=== PATIENT | male | born 1960 | race Caucasian/White ===

== ENCOUNTER → 2016-12-05 | Outpatient (CLI) | payer MEDICARE, MEDICAID ==
[2015-11-15 10:30] VITALS: BP 137/82
[~2016-12-05] MED LIST: HYDR-2762 PO; MULT-460 PO; NAPR220T70 PO; OXYC-323 PO; OXYC15TA PO; OXYC5CAP3 PO; TAMS0.4C97 PO
--- NOTE | 2016-12-05 14:23 | RAD ---
Thyroid ultrasound, 12/05/2016: History: Low TSH The right lobe of the gland measures 5.2 x 1.7 x 1.7 cm while the left lobe of the gland measures 5.4 x 1.6 x 1.4 cm. No thyroid mass is identified. The thyroid vascularity is unremarkable. IMPRESSION: No significant abnormality is detected.
== END | disposition home or self-care (01) ==
LOC: US 16:08
PROVIDERS: ATTEND Family Medicine
DX: E83.52 Hypercalcemia (principal); R94.6 Abnormal results of thyroid function studies
CPT/HCPCS: 76536

== ENCOUNTER 2017-01-04 15:58 | Emergency (ER) | payer MEDICARE, MEDICAID ==
[~2017-01-04] VITALS: Ht 182.9 cm; Wt 75.0 kg
[2017-01-04] MEDS ORDERED: IV NORMAL SALINE 1000ML BAG 1,000 ML IV SCH (17:04)
[2017-01-04 17:13] LABS: BASO # 0.1 x10^3/uL (0.0-0.2); BASO % 1 % (0-3); EOS % 2 % (0-3); HEMATOCRIT 42.7 % (39.0-53.0); HEMOGLOBIN 14.2 g/dL (13.0-17.5); LYMPH # 2.1 x10^3/uL (1.0-4.8); LYMPH % 34 % (24-48); MEAN CORPUSCULAR HEMOGLOBIN 32 pg (25-35); MEAN CORPUSCULAR HGB CONC 33 g/dL (31-37); MEAN CORPUSCULAR VOLUME 96 fL (79-100); MONO % 9 % (0-9); NEUT % 54 % (31-73); PLATELET COUNT 228 x10^3/uL (140-400); RED BLOOD COUNT 4.47 x10^6/uL (4.30-5.70); RED CELL DISTRIBUTION WIDTH 12.7 % (11.5-14.5); WHITE BLOOD COUNT 6.2 x10^3/uL (4.0-11.0)
[2017-01-04] MEDS ORDERED: HYDROMORPHONE 2 MG/ML VIAL. IV/SQ PRN (17:15)
[2017-01-04] MEDS ORDERED: KETOROLAC TROMETHAMINE 30 MG/ML SYRINGE. IV ONE (17:15)
[2017-01-04] MEDS ORDERED: ONDANSETRON PF 4 MG/2 ML VIAL. IV ONE (17:15)
[2017-01-04 17:25] LABS: CALCIUM 9.8 mg/dL (8.5-10.1); GFR 77.6; POTASSIUM 3.9 mmol/L (3.5-5.1)
[2017-01-04 17:26] LABS: BILIRUBIN,URINE NEGATIVE (NEG); GLUCOSE,URINE NEGATIVE (NEG); NITRITE,URINE NEGATIVE (NEG); PH,URINE 5.5; PROTEIN,URINE 100 mg/dL (NEG-TRACE); UROBILINOGEN,URINE 0.2 mg/dL (0.2 mg/dL)
[2017-01-04 17:31] LABS: ALBUMIN 3.6 g/dL (3.4-5.0); ALBUMIN/GLOBULIN RATIO 1.1 (1.0-1.7); TOTAL BILIRUBIN 0.3 mg/dL (0.2-1.0); TOTAL PROTEIN 6.8 g/dL (6.4-8.2)
--- NOTE | 2017-01-04 17:36 | RAD ---
PROCEDURE CT abdomen and pelvis without intravenous contrast. HISTORY Left flank pain for [address] of the abdomen and pelvis was performed without intravenous or oral contrast. Exposure: One or more of the following individualized dose reduction techniques were utilized for this examination: 1. Automated exposure control. 2. Adjustment of the mA and/or kV according to patient size. 3. Use of iterative reconstruction technique. COMPARISON CT abdomen pelvis. FINDINGS Evaluation of solid organs is limited by lack of intravenous contrast. Evaluation of enteric structures may be limited by lack of oral contrast. Liver demonstrates sub centimeter low-density lesion, not adequately characterized on this exam. Spleen, pancreas, gallbladder, and bilateral adrenal glands unremarkable. Aortic atherosclerosis is seen. No bowel obstruction or inflammation is identified. Appendix is without evidence of inflammation. No free air or free fluid is seen in the abdomen or pelvis. Prostate appears enlarged. The urinary bladder has a somewhat atypical appearance. There may have been reimplantation of the ureters, as the ureters appear to insert on the lateral side of the urinary bladder as opposed to the posterior aspect as is expected. There has been interval resolution of previously identified right urinary stone. Current examination is without evidence of right nephrolithiasis or ureterolithiasis. No right urinary obstruction is seen. The left renal pelvis demonstrates 1.4 centimeter stone which does not appear to be creating obstruction at this time; there is evidence of inflammation surrounding the left renal pelvis. The inferior pole of left kidney demonstrates 2 nonobstructive nephroliths measuring 7 and 2 millimeters. IMPRESSION 1. Large left renal pelvis stone. Two nonobstructive nephroliths involving the inferior pole of left kidney. 2. There is evidence of inflammatory change surrounding the left renal pelvis, may be secondary to intermittent obstruction versus infection. Electronically signed by: Mendez Rene MD (Jan 04, 2017 17:35:34)
[2017-01-04 18:04] LABS: BACTERIA,URINE MODERATE /HPF (0-FEW); RBC,URINE >40 /HPF (0-2)
[2017-01-04 18:05] LABS: SQUAMOUS EPITHELIAL CELL,UR OCC /LPF
[2017-01-04] MEDS ORDERED: CYCL10TA2 PO (18:59)
[2017-01-04] MEDS ORDERED: TRAM-29 PO (18:59)
[2017-01-04] MEDS ORDERED: CIPR500T94 PO (18:59)
--- NOTE | 2017-01-04 19:00 | PHYS DOC ---
Past Medical History Past Medical History: Kidney Stone, Other Additional Past Medical Histor: BACK PAIN, LEFT LEG PAIN, hepatitis C Past Surgical History: Other Additional Past Surgical Histo: back surgery, knee surgery, left elbow surgery Alcohol Use: None Drug Use: None Adult General Chief Complaint Chief Complaint: FLANK PAIN HPI HPI Patient is a 56 year old gentleman who presents here today complaining of left flank pain. Patient reports he has a history of a kidney stone in the past however this feels different. Patient has any fevers shaking chills nausea vomiting diarrhea dysuria frequency urgency hematuria chest pain shortness of breath or abdominal pain. Patient reports the pain increases when he twists his back. Patient has a history of renal colic in the past. Patient has any hypertension diabetes liver or lung problems. Patient has a history of hepatitis C. Patient has no surgeries in the past. Patient is allergic to any medicines. Patient does not smoke drink or do drugs. Patient's physical exam was remarkable for tenderness to palpation to his left flank and reducible pain with rotation of his torso. Patient is otherwise stable. Patient's workup in the ER was significant for a positive UA with 11-[address] scan did not reveal any evidence of hydronephrosis however there was some inflammation around the kidney that may be secondary to infection. Given the abnormal UA and symptoms patient was having will go ahead and treat him with Cipro. She'll also be treated with Flexeril and ibuprofen to assist him with pain that is likely secondary to a chemical strain to his back. Much improved while in the ER. Patient was given normal saline and Dilaudid initially secondary to the the presentation that was consistent with possible kidney stone. Patient is currently pain-free Patient was instructed to follow-up with his primary care physician within the next 2-3 days for reevaluation of his pain. Review of Systems Review of Systems Constitutional: Denies fever or chills [] Eyes: Denies change in visual acuity, redness, or eye pain [] Kelly other review systems are negative except as documented in the history of present illness portion. Current Medications Current Medications Current Medications Medications (Trade) Dose Ordered Sig/Matilda Start Time Stop Time Status Last Admin Dose Admin Ciprofloxacin (Cipro) 500 mg 1X ONCE 01/04/17 19:15 01/04/17 19:16 DC 01/04/17 19:20 500 MG Hydromorphone HCl 1 mg 1 mg PRN Q15MIN PRN 01/04/17 17:15 01/04/17 19:27 DC Ketorolac Tromethamine (Toradol) 15 mg 1X ONCE 01/04/17 17:15 01/04/17 17:16 DC 01/04/17 17:25 15 MG Ondansetron HCl (Zofran) 4 mg 1X ONCE 01/04/17 17:15 01/04/17 17:16 DC 01/04/17 17:25 4 MG Sodium Chloride (Iv Sodium Chloride 0.9% 1000ml Bag) 1,000 ml @ 1,000 mls/hr Q1H 01/04/17 17:04 01/04/17 18:03 DC 01/04/17 17:25 1,000 MLS/HR Tramadol HCl (Ultram) 50 mg 1X ONCE 01/04/17 19:15 01/04/17 19:16 DC 01/04/17 19:17 50 MG Allergies Allergies Allergies Coded Allergies Type Severity Reaction Last Updated Verified acetaminophen Adverse Reaction Intermediate Nausea and Vomiting 11/15/15 Yes Physical Exam Physical Exam Constitutional: Well developed, well nourished, no acute distress, non-toxic appearance. [] HENT: Normocephalic, atraumatic, bilateral external ears normal, oropharynx moist, no oral exudates, nose normal. [] Eyes: PERRLA, EOMI, conjunctiva normal, no discharge. [] Neck: Normal range of motion, no tenderness, supple, no stridor. [] Cardiovascular:Heart rate regular rhythm, no murmur [] Lungs & Thorax: Bilateral breath sounds clear to auscultation [] Abdomen: Bowel sounds normal, soft, no tenderness, no masses, no pulsatile masses. [] Skin: Warm, dry, no erythema, no rash. [] Extremities: No tenderness, no cyanosis, no clubbing, ROM intact, no edema. [] Neurologic: Alert and oriented X 3, normal motor function, normal sensory function, no focal deficits noted. [] Psychologic: Affect normal, judgement normal, mood normal. [] Current Patient Data Vital Signs Vital Signs Date Time Temp Pulse Resp B/P Pulse Ox O2 Delivery O2 Flow Rate FiO2 01/04/17 19:24 74 20 125/73 98 Room Air 01/04/17 16:50 97.9 97.9 Lab Values Laboratory Tests Test 01/04/17 16:35 01/04/17 17:03 Urine Color Johanne Urine Clarity Cloudy Urine pH 5.5 Urine Specific Latham >=1.030 Urine Protein 100mg/dL (NEG-TRACE) Urine Glucose (UA) Negativemg/dL (NEG) Urine Ketones (Stick) Tracemg/dL (NEG) Urine Blood Large (NEG) Urine Nitrite Negative (NEG) Urine Bilirubin Negative (NEG) Urine Urobilinogen Dipstick 0.2mg/dL (0.2 mg/dL) Urine Leukocyte Esterase Moderate (NEG) Urine RBC >40/HPF (0-2) Urine WBC 11-20/HPF (0-4) Urine Squamous Epithelial Cells Occ/LPF Urine Bacteria Moderate/HPF (0-FEW) White Blood Count 6.2x10^3/uL (4.0-11.0) Red Blood Count 4.47x10^6/uL (4.30-5.70) Hemoglobin 14.2g/dL (13.0-17.5) Hematocrit 42.7% (39.0-53.0) Mean Corpuscular Volume 96fL (79-100) Mean Corpuscular Hemoglobin 32pg (25-35) Mean Corpuscular Hemoglobin Concent 33g/dL (31-37) Red Cell Distribution Width 12.7% (11.5-14.5) Platelet Count 228x10^3/uL (140-400) Neutrophils (%) (Auto) 54% (31-73) Lymphocytes (%) (Auto) 34% (24-48) Monocytes (%) (Auto) 9% (0-9) Eosinophils (%) (Auto) 2% (0-3) Basophils (%) (Auto) 1% (0-3) Neutrophils # (Auto) 3.3x10^3uL (1.8-7.7) Lymphocytes # (Auto) 2.1x10^3/uL (1.0-4.8) Monocytes # (Auto) 0.6x10^3/uL (0.0-1.1) Eosinophils # (Auto) 0.1x10^3/uL (0.0-0.7) Basophils # (Auto) 0.1x10^3/uL (0.0-0.2) Sodium Level 138mmol/L (136-145) Potassium Level 3.9mmol/L (3.5-5.1) Chloride Level 103mmol/L (98-107) Carbon Dioxide Level 27mmol/L (21-32) Anion Gap 8 (6-14) Blood Urea Nitrogen 18mg/dL (8-26) Creatinine 1.0mg/dL (0.7-1.3) Estimated GFR (Cockcroft-Gault) 77.6 BUN/Creatinine Ratio 18 (6-20) Glucose Level 99mg/dL (70-99) Calcium Level 9.8mg/dL (8.5-10.1) Total Bilirubin 0.3mg/dL (0.2-1.0) Aspartate Amino Transferase (AST) 17U/L (15-37) Alanine Aminotransferase (ALT) 19U/L (16-63) Alkaline Phosphatase 58U/L (46-116) Total Protein 6.8g/dL (6.4-8.2) Albumin 3.6g/dL (3.4-5.0) Albumin/Globulin Ratio 1.1 (1.0-1.7) Laboratory Tests 01/04/17 17:03 Laboratory Tests 01/04/17 17:03 EKG EKG [] Radiology/Procedures Radiology/Procedures [] Course & Med Decision Making Course & Med Decision Making Pertinent Labs and Imaging studies reviewed. (See chart for details) [] Dragon Disclaimer Dragon Disclaimer This electronic medical record was generated, in whole or in part, using a voice recognition dictation system. Departure Departure Impression: Primary Impression: Low back pain Additional Impressions: Urinary tract infection Left flank pain Disposition: 01 HOME, SELF-CARE Condition: IMPROVED Referrals: DAVONTE PITTS (PCP) Patient Instructions: Flank Pain, Urinary Tract Infection Scripts Tramadol Hcl (Ultram)50 Mg Tablet1 Tab PO Q6HRS #14 TAB Prov:JORDIN HERRERA MD 01/04/17 Cyclobenzaprine Hcl 10 Mg Jerpga17 Mg PO TID PRN MUSCLE PAIN #20 TAB Prov:JORDIN HERRERA MD 01/04/17 Ciprofloxacin Hcl (Cipro)500 Mg Tablet1 Tab PO BID #20 TAB Prov:JORDIN HERRERA MD 01/04/17 Problem Qualifiers JORDIN HERRERA MD Jan 04, 2017 19:00
[2017-01-04] MEDS ORDERED: TRAMADOL 50 MG TABLET. PO ONE (19:15)
[2017-01-04] MEDS ORDERED: CIPROFLOXACIN HCL 250 MG TABLET PO ONE (19:15)
[2017-01-04 19:24] VITALS: BP 125/73
== END 2017-01-04 19:25 | disposition home or self-care (01) ==
LOC: ER 15:58
DX: N39.0 Urinary tract infection, site not specified (principal); Z86.19 Personal history of other infectious and parasitic diseases; Z98.890 Other specified postprocedural states; Z87.442 Personal history of urinary calculi; Z88.8 Allergy status to other drugs, medicaments and biological substances
CPT/HCPCS: 36415; 74176; 80053; 81001; 85027; 87086; 96361; 96374; 96375; 99285; J1885; J2405; J7030

== ENCOUNTER → 2017-02-18 | Outpatient (CLI) | payer MEDICARE, MEDICAID ==
[~2017-02-18] MED LIST changes: +CIPR500T94 PO; +CYCL10TA2 PO; +TRAM-29 PO
[2017-02-18 14:05] LABS: BASO # 0.1 x10^3/uL (0.0-0.2); BASO % 1 % (0-3); EOS % 2 % (0-3); HEMOGLOBIN 14.3 g/dL (13.0-17.5); LYMPH # 1.9 x10^3/uL (1.0-4.8); LYMPH % 29 % (24-48); MEAN CORPUSCULAR HEMOGLOBIN 32 pg (25-35); MEAN CORPUSCULAR HGB CONC 33 g/dL (31-37); MEAN CORPUSCULAR VOLUME 95 fL (79-100); MONO % 8 % (0-9); NEUT % 60 % (31-73); PLATELET COUNT 213 x10^3/uL (140-400); RED BLOOD COUNT 4.52 x10^6/uL (4.30-5.70); WHITE BLOOD COUNT 6.5 x10^3/uL (4.0-11.0)
--- NOTE | 2017-02-18 14:15 | RAD ---
Abdomen radiograph History: Preoperative KUB, left kidney stone, possible stent placement. Comparison: 09/05/2015. Findings: AP view of the abdomen, 2 images. Bowel gas pattern is nonspecific without evidence of obstruction. Both renal shadows are partially obscured by bowel gas and stool. There are 2 apparent mild radiodensities measuring about 1.8 and 0.9 cm at the expected location of left kidney, which could be renal stones. No convincing calcification is seen along the expected course of either ureter. Impression: Possible 2 left nephroliths with the larger measuring 1.8 cm.
[2017-02-18 14:20] LABS: CALCIUM 10.1 mg/dL (8.5-10.1); GFR 77.6; POTASSIUM 4.1 mmol/L (3.5-5.1)
[2017-02-18 14:29] LABS: PROTHROMBIN TIME PATIENT 12.9 SEC (11.7-14.0)
== END | disposition home or self-care (01) ==
LOC: SURGPAT 12:46
PROVIDERS: ATTEND Urology
DX: Z01.818 Encounter for other preprocedural examination (principal)
CPT/HCPCS: 36415; 74000; 80048; 85027; 85610; 85730

== ENCOUNTER 2017-02-20 05:44 | Day surgery (SDC) | payer MEDICARE, MEDICAID ==
[~2017-02-20] VITALS: Ht 182.9 cm; Wt 79.0 kg
[2017-02-20] MEDS ORDERED: CEFAZOLIN 2GM PREMIX 50 ML IV PRN (06:00)
[2017-02-20] MEDS ORDERED: LIDOCAINE 2% JELLY 6ML IN APPLICATOR. ONE ×2 (06:43→06:44)
[2017-02-20] MEDS ORDERED: IOHEXOL 300 MG/ML 50 ML VIAL. ONE (06:44)
[2017-02-20] MEDS ORDERED: HYDROMORPHONE 2 MG/ML VIAL. IV PRN (07:00)
[2017-02-20] MEDS ORDERED: FENTANYL PF 100 MCG/2 ML VIAL. IV PRN ×2 (07:00)
[2017-02-20] MEDS ORDERED: ONDANSETRON PF 4 MG/2 ML VIAL. IV PRN (07:00)
[2017-02-20] MEDS ORDERED: IV RINGERS,LACTATED 1000ML 1,000 ML IV SCH (07:00)
[2017-02-20] MEDS ORDERED: MORPHINE SULFATE 2 MG/ML DISP.SYRIN. IV PRN (07:00)
[2017-02-20] MEDS ORDERED: PROCHLORPERAZINE 10 MG/2 ML VIAL. IV PRN (07:00)
[2017-02-20] MEDS ORDERED: LIDOCAINE 1% 1 ML SYRINGE. ID PRN (07:00)
--- NOTE | 2017-02-20 07:02 | HP ---
ADMIT DATE: 02/20/2017 The patient is coming in for operation on 02/20/2017. This is surgical H and P. CHIEF COMPLAINT: Left flank pain, intermittent. HISTORY OF PRESENT ILLNESS: The patient is a very pleasant 56-year-old white male with history of intermittent left flank pain. He was seen in the Emergency Room back in December, found to have a 14-mm left renal pelvis stone, which has been causing intermittent pain. The patient with prior history of a stone back in 2014, which he passed spontaneously from the right side. The patient has been having intermittent pain for the last several months. He had an infection when he was in the Emergency Room in December and was treated with a course of antibiotics and then just finished another course of antibiotic by his primary care physician and was referred for further evaluation and treatment of his left renal calculus. PAST MEDICAL HISTORY: Significant for hepatitis C. He has undergone treatment for it by Dr. Delong, also has chronic back pain, neck pain, carpal tunnel and then hepatitis C. PAST SURGICAL HISTORY: He has had a back operation, knee scopes and nerve release from the left elbow in the past. MEDICATIONS: Currently he is on Chiloquin and gabapentin, just finished a course of antibiotic. ALLERGIES: He has no known drug allergies. REVIEW OF SYSTEMS: The patient with intermittent back pain and chronic back pain and leg pain. PHYSICAL EXAMINATION: GENERAL: The patient is a well-developed, well-nourished white male in no acute distress, just some chronic pain. HEENT: Normocephalic, atraumatic. NECK: Supple. CHEST: Clear to auscultation. CARDIOVASCULAR: Regular rate and rhythm. ABDOMEN: Soft with some tenderness in the left mid back. GENITOURINARY: Testes are descended bilaterally. Phallus within normal limits. RECTAL: Good sphincter tone. Prostate smooth, nontender, without nodules, overall size 25 grams. EXTREMITIES: Without clubbing, cyanosis or edema. NEUROLOGIC: Grossly intact. ASSESSMENT: A 14-mm left renal pelvis stone causing intermittent pain. PLAN: I discussed with the patient the options, alternatives, benefits, risks and possible complications of cystoscopy, left retrograde pyelogram, left ureteral stent placement followed by definitive therapy with either ESWL or ureteroscopy and laser lithotripsy in the future. The patient understands this and does wish to proceed with operation. NIMA CYR MD DR: SHELDON/akila JOB#: [id number] / [id number]
[2017-02-20] MEDS ORDERED: LIDOCAINE 2% 100 MG/5 ML DISP.SYRIN. ONE (07:15)
[2017-02-20] MEDS ORDERED: PROPOFOL 20 ML IV ONE (07:15)
[2017-02-20] MEDS ORDERED: SEVOFLURANE 31 TO 60 MINUTES. IH ONE (07:15)
[2017-02-20] MEDS ORDERED: DEXAMETHASONE SOD PHOS 20 MG/5 ML VIAL. ONE (07:39)
[2017-02-20] MEDS ORDERED: FENTANYL PF 100 MCG/2 ML VIAL. ONE (07:42)
--- NOTE | 2017-02-20 08:30 | DISCH ---
DISCHARGE INSTRUCTIONS Condition on Discharge Condition on Discharge: Stable Activity After Discharge Activity Instructions for Disc: Activity as tolerated Diet after Discharge Diet after Discharge: Regular Contacting the DR. after DC Call your doctor for: If your condition worsens Follow-Up Follow up with: Follow up in urology office in the next week NIMA CYR MD Feb 20, 2017 08:30
--- NOTE | 2017-02-20 08:32 | PDOC4 ---
Operative Note Operative Note pre-op dx- left renal calculi procedure-cystoscopy, left retrograde pyelogram, left ureteral stent placement surgeon-ena arceo-general Pt. to PACU in stable condition NIMA CYR MD Feb 20, 2017 08:32
[2017-02-20 09:26] VITALS: BP 145/80
--- NOTE | 2017-02-20 09:34 | OP ---
DATE OF SURGERY: 02/20/2017 OPERATION: Cystoscopy, left retrograde pyelogram, left ureteral stent placement. SURGEON: Nima Farris M.D. ANESTHESIA: General. PREOPERATIVE DIAGNOSIS: Left renal calculi. HISTORY OF PRESENT ILLNESS: The patient is a very pleasant 56-year-old white male with history of left renal calculi. He has a large left renal pelvis stone approximately 18 mm x 12 mm, which is located in the left renal pelvis, had been giving him intermittent pain. I discussed with the patient the options, alternatives, benefits, risks and possible complications of cystoscopy, left retrograde pyelogram and possible left ureteral stent placement prior to definitive therapy of the stone. He understands this and does wish to proceed with the operation. DESCRIPTION OF PROCEDURE: After obtaining informed consent, the patient was taken to the operating room. After an excellent general anesthetic, the patient was placed in a dorsal lithotomy position. Groin was prepped and draped in sterile fashion. The patient was preloaded with IV antibiotics. Panendoscopy and cystoscopy were then performed with the 30 and 70 degree lenses and the 21-Romansh cystoscope sheath. Penile urethra was found to be grossly normal. External sphincter appeared intact. Prostatic urethra showed some moderate bilobar enlargement and relatively high bladder neck. Bladder was entered and inspected. Both ureteral orifices were identified and found to be grossly patent. Bladder wall appeared smooth and without any lesions. No bladder tumors or bladder stones were identified. Fluoroscopy showed the left renal calculi. Left retrograde pyelogram was performed. Left distal, mid and proximal ureter appeared without any filling defects and of normal caliber. The patient noted to have the filling defect in the left renal pelvis consistent with the patient's stone with some mild dilation of the infundibula and calices. Following this, floppy tip ZIPwire was then passed up the left ureteral orifice up the left ureter, left kidney and then following this, a 4.8 x 26 double-J stent was then passed up the ZIPwire, placing one curl in the left kidney and another curl in the bladder and the ZIPwire removed. Stent position was checked by fluoroscopy under direct vision, found to be in good position. Following this, bladder was then drained. The cystoscope withdrawn from the patient. The patient tolerated the procedure very well, was taken to the recovery room in stable condition. We will have the patient follow up in the Urology office next week to then plan for the next step in definitive therapy of his left renal stone with either ESWL or ureteroscopy and laser lithotripsy. NIMA FARRIS MD DR: SHELDON/akila JOB#: [id number] / [id number]
== END 2017-02-20 09:36 | disposition home or self-care (01) ==
LOC: SURG 05:44
PROVIDERS: ATTEND Urology
DX: N20.0 Calculus of kidney (principal); F32.9 Major depressive disorder, single episode, unspecified; Z87.442 Personal history of urinary calculi; Z86.19 Personal history of other infectious and parasitic diseases; Z87.39 Personal history of other diseases of the musculoskeletal system and connective tissue
CPT/HCPCS: 52332; 74420; C1769; C2617; J0690; J1100; J2704; J3010; Q9967